=== PATIENT | female | born 1945 | race Caucasian/White ===

== ENCOUNTER 2019-08-31 04:25 | Inpatient (IN) | payer MEDICARE, MEDICAID ==
[~2019-08-31] VITALS: Ht 157.5 cm; Wt 68.8 kg
[~2019-08-31 04:25] MED LIST: ACID1TAB7 PO; ALBU18HF INH; ALPR0.25 PO; ALPR0.254 PO; ALPR0.257 PO; ALPR0.5T7 PO; AMIT10TA PO; AMIT50TA PO; AMLO10TA8 PO; ASCO500C2 PO; ASPI-650 PO; ASPI325T17 PO; BACL-19 PO; BUDE10.2 INH; BUSP7.5T3 PO; CA/D1TAB7 PO; CALC-141 PO; CALC3.7S5 NAS; CARV-39 PO; CARV12.52 PO; CARV3.1212 PO; CETI10TA24 PO; CHOL200074 PO; CLON0.1T12 PO; CLON0.5T11 PO; CLOP75TA PO; CLOP75TA52 PO; CYCL-259 PO; DIAZ5TAB PO; DIVA125C2 PO; DOXY100C15 PO; DOXY100C2 PO; DOXY100T PO; EZET10TA70 PO; FENO48TA17 PO; FLUT16SP24 NAS; FLUT1DIS IH; FLUT9.9S INH; GABA300C10 PO; GUAI200T37 PO; HYDR-3237 PO; HYDR-3343 PO; HYDR-36 PO; HYDR-826 PO; HYDR12.517 PO; HYDR1TAB16 PO; HYDROCHLOROTH12.5 MG PO; IPRA3AMP30 INH; ISOS30TA8 PO; LEVO500T47 PO; LISI40TA PO; LOSA100T14 PO; LOSA25TA25 PO; LOSA50TA2 PO; MAGN400T26 PO; MECL25TA4 PO; MELA1TAB8 PO; METH4TAB2 PO; MULT-717 PO; NYST5000 PO; Nicotine TD; OMEG1CAP23 PO; ONDA4TAB13 PO; OXYC10TA47 PO; OXYM5TAB18 PO; Oxygen INH; PANT40TA3 PO; PARO40TA3 PO; POLY17PO5 PO; POTA90TA2 PO; PRED10TA PO; PRED5TAB PO; PRIM50TA PO; Potassium Chloride PO; QUET100T4 PO; RISP1TAB45 PO; SERT25TA PO; SERT25TA3 PO; SERT50TA28 PO; SIMV40TA3 PO; TIOT18CA INH; TIZA4CAP2 PO; TIZA4TAB2 PO; TRAM-47 PO; TRAM50TA2 PO; TRAZ-137 PO; TRAZ150T62 PO; TRAZ50TA66 PO; TRIA1CAP3 PO; TRIA50CA PO; VITA50DR PO; ZOLP10TA5 PO
--- NOTE | 2019-08-31 05:07 | NUR ---
PT RESTING ON GURNEY, APPLIED MONITORS, NOTED SPO2 89% R/A, APPLIED 4.5L N/C-SPO2-96%. PROVIDED PT WARM BLANKETS, CALL LIGHT WITHIN REACH
[2019-08-31] MEDS ORDERED: ALBUTEROL/IPRATROPIUM 2.5MG/0.5MG, 3 ML ONE (05:15)
[2019-08-31] MEDS ORDERED: ASPIRIN 81 MG TABLET CHEW ONE (05:20)
[2019-08-31] MEDS ORDERED: ALBUTEROL/IPRATROPIUM 2.5MG/0.5MG, 3 ML NPPB SCH (05:30)
[2019-08-31] MEDS ORDERED: SODIUM CHLORIDE FLUSH 10ML SYR IVF ONE (05:30)
[2019-08-31] MEDS ORDERED: ASPIRIN 81 MG TABLET CHEW PO ONE (05:30)
[2019-08-31 05:39] LABS: BASOPHILS # (AUTO) 0.04 x10^3/uL (0-0.1); BASOPHILS % (AUTO) 1 % (0-1); EOSINOPHILS # (AUTO) 0.29 x10^3/uL (0-0.4); EOSINOPHILS % (AUTO) 6 % (1-7); LYMPHOCYTES # (AUTO) 1.85 x10^3/uL (1-3.4); LYMPHOCYTES % (AUTO) 36 % (22-44); MD NO; MEAN CORPUSCULAR HEMOGLOBIN 28.5 pg (27.0-34.8); MEAN CORPUSCULAR VOLUME 86.5 fL (80-100); MEAN PLATELET VOLUME 8.4 fL (7.4-10.4); MONOCYTES % (AUTO) 10 % (2-9); NEUTROPHILS # (AUTO) 2.48 x10^3/uL (1.8-6.8); NEUTROPHILS % (AUTO) 48 % (42-75); PLATELET COUNT 159 x10^3/uL (130-400); RED BLOOD COUNT 4.27 x10^6/uL (3.82-5.3); RED CELL DISTRIBUTION WIDTH 14.5 % (9.6-15.2)
--- NOTE | 2019-08-31 05:41 | NUR ---
IV SITE STARTED, PT MEDICATED PER MAR. PT DENIES NEEDS AT THIS TIME, CALL LIGHT WITHIN REACH
[2019-08-31 05:47] LABS: ALBUMIN 3.1 g/dL (3.4-5.0); ANION GAP 5 mmol/L (5-15); CALCIUM 8.9 mg/dL (8.5-10.1); CHLORIDE 110 mmol/L (98-107)
[2019-08-31 05:50] LABS: TROPONIN I < 0.015 ng/mL (0.000-0.045)
[2019-08-31] MEDS ORDERED: CEFTRIAXONE PMX 1GM/50ML 50 ML ONE (06:25)
[2019-08-31] MEDS ORDERED: CEFTRIAXONE PMX 1GM/50ML 50 ML IVPB ONE (06:30)
[2019-08-31] MEDS ORDERED: AZITHROMYCIN 500 MG in SODIUM CHLORIDE 0.9% 250 ML IVPB ONE (06:30)
--- NOTE | 2019-08-31 06:35 | NUR ---
PT RESTING ON GURNEY, IV ABX STARTED AFTER BLOOD C/O X2 SETS DRAWN, DENIES FURTHER NEEDS, CALL LIGHT WITHIN REACH. AWAITING ADMIT
[2019-08-31] MEDS ORDERED: SODIUM CHLORIDE FLUSH 10ML SYR IVF PRN (07:00)
--- NOTE | 2019-08-31 07:00 | NUR ---
REPORT GIVEN TO MEGHANA LÓPEZ
[2019-08-31 08:00] VITALS: BP 109/67
[2019-08-31] MEDS ORDERED: hydrALAzine 20 MG/ML, 1ML IVPush PRN (10:30)
[2019-08-31] MEDS ORDERED: POLYETHYLENE GLYCOL 17 GM PACKET PO PRN (10:30)
[2019-08-31] MEDS ORDERED: ONDANSETRON 2MG/ML, 2ML IVPush PRN (10:30)
[2019-08-31] MEDS ORDERED: PROMETHAZINE 25 MG/ML, 1ML IM PRN (10:30)
[2019-08-31] MEDS ORDERED: ACETAMINOPHEN 325 MG TABLET PO PRN (10:30)
[2019-08-31] MEDS ORDERED: ONDANSETRON ODT 4 MG PO PRN (10:30)
[2019-08-31] MEDS ORDERED: BISACODYL 10 MG SUPP PR PRN (10:30)
[2019-08-31] MEDS ORDERED: DOCUSATE 100 MG CAPSULE PO PRN (10:30)
[2019-08-31] MEDS ORDERED: SERT100T PO (10:42)
[2019-08-31] MEDS ORDERED: HYDR-3342 PO (10:43)
[2019-08-31] MEDS ORDERED: SERTRALINE 50MG TABLET PO SCH (11:00)
[2019-08-31] MEDS ORDERED: ALBUTEROL/IPRATROPIUM 2.5MG/0.5MG, 3 ML NEB SCH (11:00)
[2019-08-31 11:28] LABS: FREE T4 (FREE THYROXINE) 0.82 ng/dL (0.76-1.46)
[2019-08-31] MEDS: EZETIMIBE 10 MG TABLET PO SCH (11:46)
[2019-08-31] MEDS: CALCIUM/VITAMIN D3 250-125 TABLET PO SCH (11:47)
[2019-08-31] MEDS: ASPIRIN 325 MG TABLET EC PO SCH (11:47)
[2019-08-31] MEDS: SERTRALINE 100MG TABLET PO SCH (11:47)
[2019-08-31] MEDS: CLOPIDOGREL 75 MG TABLET PO SCH (11:47)
[2019-08-31] MEDS: FUROSEMIDE 20 MG/2 ML IV SCH (11:47)
[2019-08-31] MEDS: HEPARIN 5,000 UNITS/ML, 1ML SQ SCH ×2 (11:47→20:38)
[2019-08-31] MEDS: DIAZEPAM 5 MG TABLET PO SCH ×3 (11:49→21:33)
[2019-08-31 12:27] VITALS: BP 122/69
[2019-08-31 13:00] LABS: MICROSCOPIC NOT IND
[2019-08-31 13:03] LABS: CULTURE INDICATED? NO
[2019-08-31] MEDS ORDERED: CEFTRIAXONE PMX 2GM/50ML 50 ML IV SCH (18:00)
[2019-08-31 18:26] VITALS: BP 130/79
[2019-08-31] MEDS: DOXYCYCLINE 100MG TABLET PO SCH (20:38)
[2019-08-31] MEDS: ALBUTEROL/IPRATROPIUM 2.5MG/0.5MG, 3 ML NEB SCH (21:14)
[2019-08-31] MEDS: BUDESONIDE 0.5 MG/2 ML INHA NPPB SCH (21:14)
[2019-08-31] MEDS ORDERED: DIPHENHYDRAMINE 25 MG CAPSULE PO PRN (21:30)
[2019-08-31] MEDS: MELATONIN 5 MG TABLET PO PRN (21:56)
[2019-08-31] MEDS ORDERED: DIAZEPAM 5 MG TABLET PO ONE (22:30)
[2019-08-31] MEDS: OXYcodone IR 5MG TABLET PO PRN (23:06)
[2019-09-01 01:40] VITALS: BP 136/84
[2019-09-01] MEDS: HEPARIN 5,000 UNITS/ML, 1ML SQ SCH ×3 (05:01→20:46)
[2019-09-01 06:29] VITALS: BP 159/87
[2019-09-01] MEDS: CEFTRIAXONE PMX 2GM/50ML 50 ML IV SCH (06:34)
[2019-09-01 06:42] LABS: BASOPHILS # (AUTO) 0.02 x10^3/uL (0-0.1); BASOPHILS % (AUTO) 0 % (0-1); EOSINOPHILS # (AUTO) 0.01 x10^3/uL (0-0.4); EOSINOPHILS % (AUTO) 0 % (1-7); LYMPHOCYTES # (AUTO) 1.81 x10^3/uL (1-3.4); LYMPHOCYTES % (AUTO) 24 % (22-44); MD NO; MEAN CORPUSCULAR HEMOGLOBIN 28.6 pg (27.0-34.8); MEAN CORPUSCULAR HGB CONC 33.1 g/dL (32.4-35.8); MEAN CORPUSCULAR VOLUME 86.3 fL (80-100); MEAN PLATELET VOLUME 8.7 fL (7.4-10.4); MONOCYTES # (AUTO) 0.68 x10^3/uL (0.2-0.8); MONOCYTES % (AUTO) 9 % (2-9); NEUTROPHILS # (AUTO) 4.98 x10^3/uL (1.8-6.8); NEUTROPHILS % (AUTO) 66 % (42-75); PLATELET COUNT 178 x10^3/uL (130-400); RED CELL DISTRIBUTION WIDTH 14.5 % (9.6-15.2)
[2019-09-01 06:55] LABS: CHLORIDE 108 mmol/L (98-107)
[2019-09-01 07:16] LABS: ALANINE AMINOTRANSFERASE 7 U/L (12-78); ALBUMIN 3.4 g/dL (3.4-5.0); ALKALINE PHOSPHATASE 77 U/L (45-117); ANION GAP 6 mmol/L (5-15); BILIRUBIN,TOTAL 0.4 mg/dL (0.2-1.0); CALCIUM 9.7 mg/dL (8.5-10.1); CHOL/HDL RATIO 2.7; CHOLESTEROL, TOTAL 206 mg/dL (140-239); CREATININE 1.15 mg/dL (0.55-1.02); HDL CHOL % 37 % (28-40); HDL CHOLESTEROL (DIRECT) 76 mg/dL (40-60); LDL CHOLESTEROL,CALCULATED 116 mg/dL (54-169); LDL/HDL RATIO 1.5 (0.5-3.0); TOTAL PROTEIN 6.1 g/dL (6.4-8.2); TRIGLYCERIDES 69 mg/dL (50-200); VLDL CHOLESTEROL 14 mg/dL (0-25)
[2019-09-01] MEDS: BUDESONIDE 0.5 MG/2 ML INHA NPPB SCH ×2 (07:20→20:33)
[2019-09-01] MEDS: ALBUTEROL/IPRATROPIUM 2.5MG/0.5MG, 3 ML NEB SCH ×2 (07:20→20:33)
[2019-09-01] MEDS: FUROSEMIDE 20 MG/2 ML IV SCH (07:43)
[2019-09-01] MEDS: DOXYCYCLINE 100MG TABLET PO SCH ×2 (07:44→20:46)
[2019-09-01] MEDS: ASPIRIN 325 MG TABLET EC PO SCH (07:44)
[2019-09-01] MEDS: EZETIMIBE 10 MG TABLET PO SCH (07:44)
[2019-09-01] MEDS: CALCIUM/VITAMIN D3 250-125 TABLET PO SCH (07:44)
[2019-09-01] MEDS: CLOPIDOGREL 75 MG TABLET PO SCH (07:44)
[2019-09-01] MEDS: SERTRALINE 100MG TABLET PO SCH (07:44)
[2019-09-01] MEDS: OMEGA-3/FISH OIL CAPSULE PO SCH (07:44)
[2019-09-01] MEDS ORDERED: DIAZEPAM 5 MG TABLET PO SCH (09:00)
[2019-09-01 12:25] VITALS: BP 138/76
[2019-09-01] MEDS: DIAZEPAM 5 MG TABLET PO SCH ×2 (15:50→20:46)
[2019-09-01 18:20] VITALS: BP 127/62
[2019-09-01] MEDS ORDERED: TEMAZEPAM 15 MG CAPSULE PO PRN (19:00)
[2019-09-01 19:35] VITALS: BP 133/65
[2019-09-01] MEDS: MELATONIN 5 MG TABLET PO PRN (20:47)
[2019-09-01] MEDS ORDERED: TEMAZEPAM 15 MG CAPSULE PO ONE (23:30)
[2019-09-01] MEDS: OXYcodone IR 5MG TABLET PO PRN (23:34)
[2019-09-02 01:22] VITALS: BP 127/62
[2019-09-02] MEDS: HEPARIN 5,000 UNITS/ML, 1ML SQ SCH (04:51)
[2019-09-02] MEDS: CEFTRIAXONE PMX 2GM/50ML 50 ML IV SCH (06:04)
[2019-09-02 06:27] LABS: ANION GAP 7 mmol/L (5-15); CALCIUM 10.3 mg/dL (8.5-10.1); CHLORIDE 106 mmol/L (98-107)
[2019-09-02 06:28] LABS: CREATININE 1.26 mg/dL (0.55-1.02)
[2019-09-02 06:30] LABS: BASOPHILS # (AUTO) 0.05 x10^3/uL (0-0.1); BASOPHILS % (AUTO) 1 % (0-1); EOSINOPHILS # (AUTO) 0.08 x10^3/uL (0-0.4); EOSINOPHILS % (AUTO) 1 % (1-7); LYMPHOCYTES # (AUTO) 1.79 x10^3/uL (1-3.4); LYMPHOCYTES % (AUTO) 22 % (22-44); MD NO; MEAN CORPUSCULAR HEMOGLOBIN 28.6 pg (27.0-34.8); MEAN CORPUSCULAR HGB CONC 33.3 g/dL (32.4-35.8); MEAN CORPUSCULAR VOLUME 85.8 fL (80-100); MEAN PLATELET VOLUME 8.4 fL (7.4-10.4); MONOCYTES # (AUTO) 0.72 x10^3/uL (0.2-0.8); MONOCYTES % (AUTO) 9 % (2-9); NEUTROPHILS # (AUTO) 5.52 x10^3/uL (1.8-6.8); NEUTROPHILS % (AUTO) 68 % (42-75); PLATELET COUNT 229 x10^3/uL (130-400); RED BLOOD COUNT 5.31 x10^6/uL (3.82-5.3); RED CELL DISTRIBUTION WIDTH 14.8 % (9.6-15.2)
[2019-09-02] MEDS: BUDESONIDE 0.5 MG/2 ML INHA NPPB SCH (07:00)
[2019-09-02] MEDS: ALBUTEROL/IPRATROPIUM 2.5MG/0.5MG, 3 ML NEB SCH (07:28)
[2019-09-02] MEDS ORDERED: MAGNESIUM SULFATE PMX 2GM/50ML 50 ML IV ONE (08:00)
[2019-09-02] MEDS: CLOPIDOGREL 75 MG TABLET PO SCH (08:27)
[2019-09-02] MEDS: CALCIUM/VITAMIN D3 250-125 TABLET PO SCH (08:27)
[2019-09-02] MEDS: FUROSEMIDE 20 MG/2 ML IV SCH (08:27)
[2019-09-02] MEDS: EZETIMIBE 10 MG TABLET PO SCH (08:27)
[2019-09-02] MEDS: ASPIRIN 325 MG TABLET EC PO SCH (08:27)
[2019-09-02] MEDS: DIAZEPAM 5 MG TABLET PO SCH (08:27)
[2019-09-02] MEDS: SERTRALINE 100MG TABLET PO SCH (08:27)
[2019-09-02] MEDS: OMEGA-3/FISH OIL CAPSULE PO SCH (08:28)
[2019-09-02] MEDS: DOXYCYCLINE 100MG TABLET PO SCH (08:28)
[2019-09-02 08:45] VITALS: BP 156/89
[2019-09-02] MEDS ORDERED: DOXAZOSIN 2MG TABLET PO SCH (09:00)
[2019-09-02] MEDS ORDERED: DOXY100T PO (09:24)
[2019-09-02] MEDS ORDERED: DOXA2TAB9 PO (09:24)
== END 2019-09-02 12:00 | disposition home or self-care (01) | DRG 177 ==
LOC: ED 04:47 → EDIP 06:33 → MERGE 06:33 → 4EST 07:33 → DCLOUNGE 09-02 11:50
PROVIDERS: ADMIT Internal Medicine; ATTEND Family Medicine
DX: J15.6 Pneumonia due to other Gram-negative bacteria (principal); N17.0 Acute kidney failure with tubular necrosis; J96.21 Acute and chronic respiratory failure with hypoxia; I50.33 Acute on chronic diastolic (congestive) heart failure; J44.0 Chronic obstructive pulmonary disease with (acute) lower respiratory infection; J44.1 Chronic obstructive pulmonary disease with (acute) exacerbation; I11.0 Hypertensive heart disease with heart failure; J15.9 Unspecified bacterial pneumonia; G47.33 Obstructive sleep apnea (adult) (pediatric); I07.1 Rheumatic tricuspid insufficiency; M19.90 Unspecified osteoarthritis, unspecified site; I27.20 Pulmonary hypertension, unspecified; I35.1 Nonrheumatic aortic (valve) insufficiency; Z87.891 Personal history of nicotine dependence; Z99.81 Dependence on supplemental oxygen; Z86.73 Personal history of transient ischemic attack (TIA), and cerebral infarction without residual deficits; Z79.82 Long term (current) use of aspirin; Z79.899 Other long term (current) drug therapy
CPT/HCPCS: 36415; 71045; 80048; 80053; 80061; 80069; 81003; 82040; 83036; 83605; 83735; 83880; 84145; 84439; 84443; 84484; 85025; 87040; 93005; 93306; 94640; 96365; G0378; J0456; J0696; J1644; J7620; J7626; Q0162; J1940; J3475; J7050; J7512

== ENCOUNTER 2019-12-03 07:06 | Observation (INO) | payer MEDICARE, MEDICAID ==
[~2019-12-03] VITALS: Ht 157.5 cm; Wt 65.2 kg
[~2019-12-03 07:06] MED LIST changes: -CETI10TA24 PO; +CETI10TA26 PO; +CLON-364 PO; -CLON0.5T11 PO; +DOXA2TAB9 PO; +FENO48TA10 PO; -FENO48TA17 PO; +HYDR-3246 PO; +HYDR-3342 PO; -HYDR-36 PO; +MECL-101 PO; -MECL25TA4 PO; +SERT100T PO; +SIMV40TA20 PO; -SIMV40TA3 PO; -TRAZ-137 PO; +TRAZ-175 PO
--- NOTE | 2019-12-03 07:25 | NUR ---
sarah. report received from ems. pt woke up 2am and tried to get out of bed. pt was not able to get out of bed d/t generalized weakness/wilkinson/dzy. denies cp/sob. per pt's , pt fell out of bed 1 week ago and hit head. no trauma/loc at that time. pt also concerns her speech which is not normal for pt. pt's aox4. resps even and unlabored. no face drooping/speech difficulty noted at this time. sensation incatct bilaterally. all monitors in place. call light within reach. ekg done at bedside by emt. rails up x2.
--- NOTE | 2019-12-03 07:34 | NUR ---
pt in ct at this time.
--- NOTE | 2019-12-03 07:45 | NUR ---
pt's straight cath'd using sterile technique. pt tolerated well. this rn walked to lab for ua.
[2019-12-03 07:56] LABS: BASOPHILS # (AUTO) 0.03 x10^3/uL (0-0.1); BASOPHILS % (AUTO) 1 % (0-1); EOSINOPHILS # (AUTO) 0.27 x10^3/uL (0-0.4); EOSINOPHILS % (AUTO) 4 % (1-7); LYMPHOCYTES # (AUTO) 2.13 x10^3/uL (1-3.4); LYMPHOCYTES % (AUTO) 30 % (22-44); MD NO; MEAN CORPUSCULAR HEMOGLOBIN 29.5 pg (27.0-34.8); MEAN CORPUSCULAR HGB CONC 33.4 g/dL (32.4-35.8); MEAN CORPUSCULAR VOLUME 88.3 fL (80-100); MEAN PLATELET VOLUME 7.9 fL (7.4-10.4); MONOCYTES % (AUTO) 11 % (2-9); NEUTROPHILS # (AUTO) 3.81 x10^3/uL (1.8-6.8); NEUTROPHILS % (AUTO) 54 % (42-75); PLATELET COUNT 229 x10^3/uL (130-400); RED BLOOD COUNT 4.36 x10^6/uL (3.82-5.3); RED CELL DISTRIBUTION WIDTH 14.6 % (9.6-15.2)
[2019-12-03 08:04] LABS: ALANINE AMINOTRANSFERASE 12 U/L (12-78); ANION GAP 5 mmol/L (5-15); CALCIUM 8.8 mg/dL (8.5-10.1); CHLORIDE 110 mmol/L (98-107); CREATININE 1.23 mg/dL (0.55-1.02)
--- NOTE | 2019-12-03 08:05 | NUR ---
bedpan placed per request.
[2019-12-03 08:08] LABS: ALKALINE PHOSPHATASE 72 U/L (45-117); BILIRUBIN,TOTAL 0.4 mg/dL (0.2-1.0); TOTAL PROTEIN 6.2 g/dL (6.4-8.2); TROPONIN I < 0.015 ng/mL (0.000-0.045)
[2019-12-03 08:35] LABS: MICROSCOPIC NOT IND
[2019-12-03] MEDS ORDERED: DIAZEPAM 5 MG/ML, 2ML IV ONE (09:00)
--- NOTE | 2019-12-03 09:02 | NUR ---
PT RESTING IN [facility]. PT'S AOX4. RESPS EVEN AND UNLABORED. ALL MONITORS IN PLACE. CALL LIGHT WITHIN REACH. RAILS UP X2.
--- NOTE | 2019-12-03 09:05 | NUR ---
James benitez in [facility] - 12/03/19 at 0919 by MEL PT TO MRI AT THIS TIME.
[2019-12-03] MEDS ORDERED: DIAZEPAM 5 MG/ML, 2ML ONE (09:12)
--- NOTE | 2019-12-03 09:19 | NUR ---
PT MEDICATED PER EMAR BEFORE MRI. PT TOLERATED WELL.
--- NOTE | 2019-12-03 09:22 | NUR ---
PT TO MRI AT THIS TIME.
[2019-12-03] MEDS ORDERED: LOSA25TA25 PO (09:26)
--- NOTE | 2019-12-03 10:02 | NUR ---
pt back to room from mri. pt resting in [facility]. pt's aox4. resps even and unlabored.
--- NOTE | 2019-12-03 10:09 | NUR ---
pt's number [phone]
[2019-12-03] MEDS ORDERED: ASPIRIN 81 MG TABLET CHEW ONE (10:16)
--- NOTE | 2019-12-03 10:23 | NUR ---
PT MEDICATED PER EMAR. PT TOLERATED WELL. BED MOYA PLACED PER REQUEST AT THIS TIME.
[2019-12-03] MEDS ORDERED: ASPIRIN 81 MG TABLET CHEW PO ONE (10:30)
--- NOTE | 2019-12-03 10:51 | NUR ---
bedside comode placed in room per shaheen. pt using bedside comode at this time.
--- NOTE | 2019-12-03 11:27 | NUR ---
pt back to bed. pt's aox4. resps even and unlabored. all monitors in place. call light within reach.
--- NOTE | 2019-12-03 11:36 | NUR ---
REPORT GIVEN TO STACIA KOWALSKI. ALL QUESTIONS ANSWERED.
[2019-12-03 12:08] VITALS: BP 155/80
[2019-12-03] MEDS ORDERED: FLUMAZENIL 0.1 MG/1 ML, 5ML ONE (15:20)
[2019-12-03] MEDS ORDERED: NALOXONE 1 MG/ML, 2ML ONE (15:20)
[2019-12-03] MEDS ORDERED: MIDAZOLAM 1 MG/ML, 5ML ONE (15:20)
[2019-12-03] MEDS ORDERED: FENTANYL PF 100 MCG/2ML ONE (15:20)
[2019-12-03] MEDS ORDERED: BISACODYL 10 MG SUPP PR PRN (16:30)
[2019-12-03] MEDS ORDERED: ACETAMINOPHEN 325 MG TABLET PO PRN (16:30)
[2019-12-03] MEDS: HEPARIN 5,000 UNITS/ML, 1ML SQ SCH (16:30)
[2019-12-03] MEDS ORDERED: ZOLPIDEM 5MG TABLET PO PRN (16:30)
[2019-12-03] MEDS ORDERED: hydrALAzine 20 MG/ML, 1ML IVPush PRN (16:30)
[2019-12-03] MEDS ORDERED: ONDANSETRON ODT 4 MG PO PRN (16:30)
[2019-12-03] MEDS ORDERED: POLYETHYLENE GLYCOL 17 GM PACKET PO PRN (16:30)
[2019-12-03 17:35] LABS: FREE T4 (FREE THYROXINE) 0.82 ng/dL (0.76-1.46)
[2019-12-03 18:51] VITALS: BP 136/61
[2019-12-03] MEDS: DIAZEPAM 5 MG TABLET PO SCH (20:09)
[2019-12-04] MEDS: HEPARIN 5,000 UNITS/ML, 1ML SQ SCH ×2 (00:30→08:23)
[2019-12-04 00:40] VITALS: BP 105/70
[2019-12-04 06:16] LABS: BASOPHILS # (AUTO) 0.03 x10^3/uL (0-0.1); BASOPHILS % (AUTO) 1 % (0-1); EOSINOPHILS # (AUTO) 0.24 x10^3/uL (0-0.4); EOSINOPHILS % (AUTO) 4 % (1-7); LYMPHOCYTES # (AUTO) 1.78 x10^3/uL (1-3.4); LYMPHOCYTES % (AUTO) 29 % (22-44); MD NO; MEAN CORPUSCULAR HEMOGLOBIN 29.1 pg (27.0-34.8); MEAN CORPUSCULAR HGB CONC 32.9 g/dL (32.4-35.8); MEAN CORPUSCULAR VOLUME 88.6 fL (80-100); MEAN PLATELET VOLUME 8.5 fL (7.4-10.4); MONOCYTES # (AUTO) 0.64 x10^3/uL (0.2-0.8); MONOCYTES % (AUTO) 11 % (2-9); NEUTROPHILS # (AUTO) 3.37 x10^3/uL (1.8-6.8); NEUTROPHILS % (AUTO) 56 % (42-75); PLATELET COUNT 213 x10^3/uL (130-400); RED CELL DISTRIBUTION WIDTH 14.7 % (9.6-15.2)
[2019-12-04 06:25] LABS: ALANINE AMINOTRANSFERASE 10 U/L (12-78); ALBUMIN 2.8 g/dL (3.4-5.0); ANION GAP 7 mmol/L (5-15); CALCIUM 9.1 mg/dL (8.5-10.1); CHLORIDE 107 mmol/L (98-107); CHOLESTEROL, TOTAL 208 mg/dL (140-239); CREATININE 1.07 mg/dL (0.55-1.02)
[2019-12-04 06:28] LABS: ALKALINE PHOSPHATASE 71 U/L (45-117); BILIRUBIN,TOTAL 0.3 mg/dL (0.2-1.0); CHOL/HDL RATIO 2.6; HDL CHOL % 39 % (28-40); HDL CHOLESTEROL (DIRECT) 81 mg/dL (40-60); LDL CHOLESTEROL,CALCULATED 110 mg/dL (54-169); LDL/HDL RATIO 1.4 (0.5-3.0); TOTAL PROTEIN 5.9 g/dL (6.4-8.2); TRIGLYCERIDES 87 mg/dL (50-200); VLDL CHOLESTEROL 17 mg/dL (0-25)
[2019-12-04 07:33] VITALS: BP 120/72
[2019-12-04] MEDS: DIAZEPAM 5 MG TABLET PO SCH (08:24)
[2019-12-04] MEDS ORDERED: CLOPIDOGREL 75 MG TABLET PO SCH (09:00)
[2019-12-04] MEDS ORDERED: SERTRALINE 100MG TABLET PO SCH (09:00)
[2019-12-04] MEDS ORDERED: ASPIRIN 325 MG TABLET EC PO SCH (09:00)
[2019-12-04] MEDS ORDERED: EZETIMIBE 10 MG TABLET PO SCH (09:00)
[2019-12-04 12:52] VITALS: BP 108/70
== END 2019-12-04 15:32 | disposition home health service (06) ==
LOC: ED 07:58 → INTOOBSV 10:52 → EDIP 10:52 → 4WST 12:26
PROVIDERS: ADMIT Internal Medicine; ATTEND Family Medicine
DX: G93.41 Metabolic encephalopathy (principal); R47.01 Aphasia; I69.354 Hemiplegia and hemiparesis following cerebral infarction affecting left non-dominant side; J96.10 Chronic respiratory failure, unspecified whether with hypoxia or hypercapnia; I13.0 Hypertensive heart and chronic kidney disease with heart failure and stage 1 through stage 4 chronic kidney disease, or unspecified chronic kidney disease; R47.1 Dysarthria and anarthria; I69.392 Facial weakness following cerebral infarction; I25.2 Old myocardial infarction; G47.33 Obstructive sleep apnea (adult) (pediatric); J44.9 Chronic obstructive pulmonary disease, unspecified; F41.9 Anxiety disorder, unspecified; F32.9 Major depressive disorder, single episode, unspecified; I35.1 Nonrheumatic aortic (valve) insufficiency; I50.9 Heart failure, unspecified; R26.2 Difficulty in walking, not elsewhere classified; N18.3 Chronic kidney disease, stage 3 (moderate); Z79.891 Long term (current) use of opiate analgesic; Z79.82 Long term (current) use of aspirin; Z79.02 Long term (current) use of antithrombotics/antiplatelets; Z79.51 Long term (current) use of inhaled steroids
CPT/HCPCS: 36415; 70450; 70551; 71045; 80053; 80061; 81003; 83036; 84439; 84443; 84484; 85025; 87086; 93005; 96374; 97162; 97165; 99156; 99157; 99285; G0378; J2250; J3010; J3360; J2310

== ENCOUNTER 2020-01-01 10:25 | Observation (INO) | payer MEDICARE, MEDICAID ==
[~2020-01-01] VITALS: Ht 160 cm; Wt 68.0 kg
[~2020-01-01 10:25] MED LIST changes: -BUSP7.5T3 PO; +BUSP7.5T5 PO
[2020-01-01] MEDS ORDERED: SPIR25TA5 PO (10:38)
--- NOTE | 2020-01-01 10:48 | NUR ---
THIS IS A 74 YO F BIB EMS FROM HOME W/ C/O SLURRED SPEECH AND WEAKNESS. PER PTS HARJINDER PT WOKE UP AT 0400 THIS MORNING TO USE BR BUT WAS WALKING INTO [place], SLURRING SPEECH AND THEN BECAME NONAMBULATORY. LAID HER BACK TO BED. PT CAME TODAY AND NOTIFICED SLURRED SPEECH AND CALLED EMS. 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 PT A&OX4 HOWEVER DOES DEMONSTRATE SOME SLURRING OF SPEECH. PER LAST KNOWN NORMAL WAS 1900 LAST NIGHT PRIOR TO GOING TO BED. PT IS RESTING ON GURNEY RESP EVEN AND UNLABORED, NADN. CALL LIGHT IN REACH, CONNECTED TO ALL MONITORING. AT BEDSIDE FOR ED EVAL.
--- NOTE | 2020-01-01 11:00 | NUR ---
MED REC DONE.
--- NOTE | 2020-01-01 11:09 | NUR ---
STRAIGHT CATH URINE OBTAINED AND WALKED TO LAB. PT TOLERATED WELL. RIMA, YANI.
--- NOTE | 2020-01-01 11:10 | NUR ---
RAD IN ROOM.
--- NOTE | 2020-01-01 11:12 | NUR ---
PT TO CT.
[2020-01-01 11:16] LABS: MICROSCOPIC NOT IND
--- NOTE | 2020-01-01 11:35 | NUR ---
LAB IN ROOM.
[2020-01-01 11:53] LABS: BASOPHILS # (AUTO) 0.03 x10^3/uL (0-0.1); BASOPHILS % (AUTO) 1 % (0-1); EOSINOPHILS # (AUTO) 0.18 x10^3/uL (0-0.4); EOSINOPHILS % (AUTO) 3 % (1-7); LYMPHOCYTES % (AUTO) 26 % (22-44); MD NO; MEAN CORPUSCULAR HEMOGLOBIN 29.5 pg (27.0-34.8); MEAN CORPUSCULAR HGB CONC 32.9 g/dL (32.4-35.8); MEAN CORPUSCULAR VOLUME 89.6 fL (80-100); MEAN PLATELET VOLUME 7.9 fL (7.4-10.4); MONOCYTES # (AUTO) 0.58 x10^3/uL (0.2-0.8); MONOCYTES % (AUTO) 11 % (2-9); NEUTROPHILS # (AUTO) 3.31 x10^3/uL (1.8-6.8); NEUTROPHILS % (AUTO) 60 % (42-75); PLATELET COUNT 167 x10^3/uL (130-400); RED BLOOD COUNT 4.36 x10^6/uL (3.82-5.3); RED CELL DISTRIBUTION WIDTH 14.1 % (9.6-15.2)
[2020-01-01 12:02] LABS: INTERNATIONAL NORMALIZED RATIO 0.97 (0.93-1.1); PROTHROMBIN TIME 10.3 Seconds (9.6-11.5)
[2020-01-01 12:04] LABS: ALBUMIN 3.2 g/dL (3.4-5.0); ANION GAP 4 mmol/L (5-15); CHLORIDE 108 mmol/L (98-107)
[2020-01-01 12:12] LABS: ALANINE AMINOTRANSFERASE 14 U/L (12-78); ALKALINE PHOSPHATASE 75 U/L (45-117); BILIRUBIN,TOTAL 0.6 mg/dL (0.2-1.0); CREATININE 1.24 mg/dL (0.55-1.02); TOTAL PROTEIN 5.9 g/dL (6.4-8.2); TROPONIN I < 0.015 ng/mL (0.000-0.045)
--- NOTE | 2020-01-01 13:00 | NUR ---
PT RESTING ON [employer] W/ CALL LIGHT IN REACH. CONNECTED TO ALL MONITORING. SIDE RAILS UPX2. RESP EVEN AND UNLABORED. NADN. UPDATED ON POC FOR ADMIT.
--- NOTE | 2020-01-01 13:12 | NUR ---
PT PLACED ON BEDPAN.
--- NOTE | 2020-01-01 13:38 | NUR ---
PT RESTING ON [employer] W/ CALL LIGHT IN REACH. RESP EVEN AND UNLABORED, YANI.
--- NOTE | 2020-01-01 13:38 | NUR ---
HARJINDER SPOUSE [phone]
--- NOTE | 2020-01-01 13:44 | NUR ---
REPORT GIVEN TO RIZWAN KOWALSKI. PT IS READY FOR TRANSPORT AT THIS TIME.
--- NOTE | 2020-01-01 13:45 | NUR ---
TELEPHONE CALL TO HARJINDER WHEELER UPDATING HIM ON POC FOR ADMIT.
[2020-01-01] MEDS ORDERED: ACETAMINOPHEN 325 MG TABLET PO PRN (14:30)
[2020-01-01] MEDS ORDERED: TRAZODONE 50MG TABLET PO PRN (14:30)
[2020-01-01] MEDS ORDERED: ONDANSETRON 2MG/ML, 2ML IVPush PRN (14:30)
[2020-01-01] MEDS: HEPARIN 5,000 UNITS/ML, 1ML SQ SCH (16:22)
[2020-01-01 16:24] VITALS: BP 139/69
[2020-01-01 18:45] VITALS: BP 140/88
[2020-01-01 19:59] VITALS: BP 122/75
[2020-01-02 00:03] VITALS: BP 132/82
[2020-01-02] MEDS: HEPARIN 5,000 UNITS/ML, 1ML SQ SCH ×2 (03:08→15:07)
[2020-01-02 05:37] LABS: ANION GAP 8 mmol/L (5-15); CALCIUM 8.9 mg/dL (8.5-10.1); CHLORIDE 106 mmol/L (98-107)
[2020-01-02 05:39] LABS: BASOPHILS % (AUTO) 0 % (0-1); EOSINOPHILS # (AUTO) 0.18 x10^3/uL (0-0.4); EOSINOPHILS % (AUTO) 3 % (1-7); LYMPHOCYTES # (AUTO) 1.73 x10^3/uL (1-3.4); LYMPHOCYTES % (AUTO) 33 % (22-44); MD NO; MEAN CORPUSCULAR HEMOGLOBIN 29.2 pg (27.0-34.8); MEAN CORPUSCULAR HGB CONC 32.9 g/dL (32.4-35.8); MEAN CORPUSCULAR VOLUME 88.7 fL (80-100); MEAN PLATELET VOLUME 8.3 fL (7.4-10.4); MONOCYTES # (AUTO) 0.53 x10^3/uL (0.2-0.8); MONOCYTES % (AUTO) 10 % (2-9); NEUTROPHILS # (AUTO) 2.83 x10^3/uL (1.8-6.8); NEUTROPHILS % (AUTO) 54 % (42-75); PLATELET COUNT 136 x10^3/uL (130-400); RED BLOOD COUNT 4.27 x10^6/uL (3.82-5.3); RED CELL DISTRIBUTION WIDTH 14.2 % (9.6-15.2)
[2020-01-02 05:49] LABS: CREATININE 1.19 mg/dL (0.55-1.02)
[2020-01-02 07:26] LABS: CHOL/HDL RATIO 2.9
[2020-01-02 07:27] LABS: LDL/HDL RATIO 1.6 (0.5-3.0)
[2020-01-02 07:40] VITALS: BP 152/87
[2020-01-02] MEDS: ASPIRIN 325 MG TABLET EC PO SCH (08:22)
[2020-01-02] MEDS: EZETIMIBE 10 MG TABLET PO SCH (08:22)
[2020-01-02] MEDS: SERTRALINE 100MG TABLET PO SCH (08:23)
[2020-01-02] MEDS: CLOPIDOGREL 75 MG TABLET PO SCH (08:23)
[2020-01-02] MEDS: DIAZEPAM 5 MG TABLET PO SCH (08:23)
[2020-01-02] MEDS ORDERED: LORazepam 2 MG/ML, 1ML IVPush ONE (08:30)
[2020-01-02] MEDS ORDERED: BISACODYL 10 MG SUPP PR PRN (08:30)
[2020-01-02 13:12] VITALS: BP 146/84
[2020-01-02 19:30] VITALS: BP 116/74
[2020-01-02 20:37] VITALS: BP 136/74
[2020-01-03 00:05] VITALS: BP 120/82
[2020-01-03 00:20] VITALS: BP 117/66
[2020-01-03] MEDS: HEPARIN 5,000 UNITS/ML, 1ML SQ SCH (05:13)
[2020-01-03 05:16] LABS: ANION GAP 8 mmol/L (5-15); CALCIUM 8.9 mg/dL (8.5-10.1); CHLORIDE 107 mmol/L (98-107); CREATININE 0.98 mg/dL (0.55-1.02)
[2020-01-03 06:31] VITALS: BP 129/77
[2020-01-03] MEDS: EZETIMIBE 10 MG TABLET PO SCH (09:16)
[2020-01-03] MEDS: SERTRALINE 100MG TABLET PO SCH (09:16)
[2020-01-03] MEDS: DIAZEPAM 5 MG TABLET PO SCH (09:17)
[2020-01-03] MEDS: CLOPIDOGREL 75 MG TABLET PO SCH (09:17)
[2020-01-03] MEDS: ASPIRIN 325 MG TABLET EC PO SCH (09:17)
== END 2020-01-03 11:22 | disposition home or self-care (01) ==
LOC: ED 13:01 → SUATTDRO 13:38 → EDIP 13:57 → INTOOBSV 13:57 → 4EST 14:24
PROVIDERS: ADMIT Hospitalist; ATTEND Internal Medicine Infectious Disease
DX: G45.9 Transient cerebral ischemic attack, unspecified (principal); I11.0 Hypertensive heart disease with heart failure; I50.32 Chronic diastolic (congestive) heart failure; J96.10 Chronic respiratory failure, unspecified whether with hypoxia or hypercapnia; J44.9 Chronic obstructive pulmonary disease, unspecified; G47.33 Obstructive sleep apnea (adult) (pediatric); I35.1 Nonrheumatic aortic (valve) insufficiency; Z86.73 Personal history of transient ischemic attack (TIA), and cerebral infarction without residual deficits; Z87.891 Personal history of nicotine dependence; Z79.899 Other long term (current) drug therapy; Z79.82 Long term (current) use of aspirin
CPT/HCPCS: 36415; 70450; 70551; 71045; 80048; 80053; 80061; 81003; 84443; 84484; 85025; 85610; 85730; 87040; 93005; 93306; 93880; 96372; 96374; 97162; 99285; G0378; J1644; J2060

== ENCOUNTER 2020-02-09 18:54 | Emergency (ER) | payer MEDICARE, MEDICAID ==
[~2020-02-09] VITALS: Ht 157.5 cm; Wt 68.1 kg
[~2020-02-09 18:54] MED LIST changes: +SPIR25TA5 PO
--- NOTE | 2020-02-09 20:05 | NUR ---
Pt to xray.
[2020-02-09] MEDS ORDERED: CEFTRIAXONE 1,000 MG ONE (20:21)
[2020-02-09] MEDS ORDERED: HYDROcodone/APAP 5/325 TABLET PO ONE (20:30)
[2020-02-09] MEDS ORDERED: HYDROcodone/APAP 5/325 TABLET ONE (20:36)
[2020-02-09 20:51] LABS: BASOPHILS # (AUTO) 0.01 x10^3/uL (0-0.1); BASOPHILS % (AUTO) 0 % (0-1); EOSINOPHILS # (AUTO) 0.21 x10^3/uL (0-0.4); EOSINOPHILS % (AUTO) 3 % (1-7); LYMPHOCYTES # (AUTO) 2.13 x10^3/uL (1-3.4); LYMPHOCYTES % (AUTO) 29 % (22-44); MD NO; MEAN CORPUSCULAR HEMOGLOBIN 28.9 pg (27.0-34.8); MEAN CORPUSCULAR HGB CONC 32.2 g/dL (32.4-35.8); MEAN CORPUSCULAR VOLUME 89.8 fL (80-100); MEAN PLATELET VOLUME 7.9 fL (7.4-10.4); MONOCYTES # (AUTO) 0.76 x10^3/uL (0.2-0.8); MONOCYTES % (AUTO) 10 % (2-9); NEUTROPHILS # (AUTO) 4.19 x10^3/uL (1.8-6.8); NEUTROPHILS % (AUTO) 57 % (42-75); PLATELET COUNT 231 x10^3/uL (130-400); RED BLOOD COUNT 4.42 x10^6/uL (3.82-5.3); RED CELL DISTRIBUTION WIDTH 14.3 % (9.6-15.2)
[2020-02-09 20:56] LABS: ALANINE AMINOTRANSFERASE 15 U/L (12-78); ALBUMIN 3.8 g/dL (3.4-5.0); ANION GAP 2 mmol/L (5-15); CALCIUM 9.4 mg/dL (8.5-10.1); CHLORIDE 107 mmol/L (98-107); CREATININE 1.36 mg/dL (0.55-1.02)
[2020-02-09 21:01] LABS: ALKALINE PHOSPHATASE 83 U/L (45-117); BILIRUBIN,TOTAL 0.4 mg/dL (0.2-1.0); TROPONIN I < 0.015 ng/mL (0.000-0.045)
[2020-02-09 21:15] VITALS: BP 169/89
--- NOTE | 2020-02-09 21:44 | NUR ---
Called Caleb Mayer per pt request and advised she was being discharged. Mr. Mayer said he would be there in about 20 minutes.
== END 2020-02-09 22:47 | disposition home or self-care (01) ==
LOC: ED 19:17
DX: S22.41XA Multiple fractures of ribs, right side, initial encounter for closed fracture (principal); I49.3 Ventricular premature depolarization; R07.89 Other chest pain; J44.9 Chronic obstructive pulmonary disease, unspecified; Z86.73 Personal history of transient ischemic attack (TIA), and cerebral infarction without residual deficits; Z87.891 Personal history of nicotine dependence; W18.39XA Other fall on same level, initial encounter; Y93.89 Activity, other specified; Y92.098 Other place in other non-institutional residence as the place of occurrence of the external cause; Y99.8 Other external cause status
CPT/HCPCS: 36415; 80053; 84484; 85025; 93005; 99285

== ENCOUNTER 2020-02-25 17:19 | Emergency (ER) | payer MEDICARE, MEDICAID ==
[~2020-02-25] VITALS: Ht 157.5 cm; Wt 68.2 kg
[2020-02-25 18:04] LABS: BASOPHILS # (AUTO) 0.04 x10^3/uL (0-0.1); BASOPHILS % (AUTO) 1 % (0-1); EOSINOPHILS # (AUTO) 0.09 x10^3/uL (0-0.4); EOSINOPHILS % (AUTO) 1 % (1-7); LYMPHOCYTES # (AUTO) 1.85 x10^3/uL (1-3.4); LYMPHOCYTES % (AUTO) 27 % (22-44); MD NO; MEAN CORPUSCULAR HEMOGLOBIN 29.4 pg (27.0-34.8); MEAN CORPUSCULAR HGB CONC 33.3 g/dL (32.4-35.8); MEAN CORPUSCULAR VOLUME 88.2 fL (80-100); MEAN PLATELET VOLUME 8.6 fL (7.4-10.4); MONOCYTES # (AUTO) 0.73 x10^3/uL (0.2-0.8); MONOCYTES % (AUTO) 11 % (2-9); NEUTROPHILS # (AUTO) 4.14 x10^3/uL (1.8-6.8); NEUTROPHILS % (AUTO) 60 % (42-75); PLATELET COUNT 213 x10^3/uL (130-400); RED BLOOD COUNT 4.42 x10^6/uL (3.82-5.3); RED CELL DISTRIBUTION WIDTH 14.4 % (9.6-15.2)
[2020-02-25 18:09] LABS: ALANINE AMINOTRANSFERASE 12 U/L (12-78); ALBUMIN 3.4 g/dL (3.4-5.0); ANION GAP 7 mmol/L (5-15); CALCIUM 9.4 mg/dL (8.5-10.1); CHLORIDE 111 mmol/L (98-107); CREATININE 1.26 mg/dL (0.55-1.02)
[2020-02-25 18:11] LABS: ALKALINE PHOSPHATASE 100 U/L (45-117); BILIRUBIN,TOTAL 0.6 mg/dL (0.2-1.0); TOTAL PROTEIN 6.2 g/dL (6.4-8.2)
--- NOTE | 2020-02-25 18:18 | NUR ---
STRAIGHT CATH PERFORMED WITHOUT DIFFICULTY. URINE SAMPLE WALKED TO LAB. VITAL SIGNS WDL, NO C/O OF PAIN. NO FURTHER NEEDS AT THIS TIME.
[2020-02-25 18:32] LABS: MICROSCOPIC NOT IND
--- NOTE | 2020-02-25 19:12 | NUR ---
report received from hillary ellis
--- NOTE | 2020-02-25 19:14 | NUR ---
pt walked to bathroom and back to bed with one assist, pt back in bed on monitor and provided with warm blankets. son at bedside
[2020-02-25 20:42] VITALS: BP 126/70
== END 2020-02-25 20:47 | disposition home or self-care (01) ==
LOC: ED 20:27
DX: R41.82 Altered mental status, unspecified (principal); R07.9 Chest pain, unspecified; R94.31 Abnormal electrocardiogram [ECG] [EKG]; Z86.73 Personal history of transient ischemic attack (TIA), and cerebral infarction without residual deficits
CPT/HCPCS: 36415; 71045; 80053; 81003; 85025; 93005; 99285

== ENCOUNTER → 2020-04-27 | Outpatient (CLI) | payer MEDICARE, MEDICAID ==
[~2020-04-27] MED LIST changes: -CETI10TA26 PO; +CETI10TA76 PO
== END | disposition home or self-care (01) ==
LOC: CFH 10:00
PROVIDERS: ATTEND Registered Nurse
DX: Z12.2 Encounter for screening for malignant neoplasm of respiratory organs (principal); S22.000A Wedge compression fracture of unspecified thoracic vertebra, initial encounter for closed fracture; I65.23 Occlusion and stenosis of bilateral carotid arteries; J43.2 Centrilobular emphysema; R91.8 Other nonspecific abnormal finding of lung field; X58.XXXA Exposure to other specified factors, initial encounter; Y93.89 Activity, other specified; Y92.89 Other specified places as the place of occurrence of the external cause; Y99.8 Other external cause status
CPT/HCPCS: 93880; G0297

== ENCOUNTER 2020-08-13 07:44 | Emergency (ER) | payer MEDICARE, MEDICAID ==
[~2020-08-13] VITALS: Ht 157.5 cm; Wt 63.3 kg
[~2020-08-13 07:44] MED LIST changes: +AMLO-211 PO; -AMLO10TA8 PO
--- NOTE | 2020-08-13 07:59 | NUR ---
PATIENT ARRIVES WITH THINKING SHE HAS A "PUS FILLED INJURY" TO INSIDE OF LOWER LIP. SHOWED ME, I DO NOT SEE ANYTHING.
[2020-08-13 08:20] VITALS: BP 128/78
== END 2020-08-13 08:26 | disposition home or self-care (01) ==
LOC: ED 08:20
DX: K06.8 Other specified disorders of gingiva and edentulous alveolar ridge (principal); J44.9 Chronic obstructive pulmonary disease, unspecified; Z86.73 Personal history of transient ischemic attack (TIA), and cerebral infarction without residual deficits
CPT/HCPCS: 99283

== ENCOUNTER 2020-11-27 05:53 | Emergency (ER) | payer MEDICARE, MEDICAID ==
[~2020-11-27] VITALS: Ht 157.5 cm; Wt 63.3 kg
[~2020-11-27 05:53] MED LIST changes: +ASPI-1026 PO; -ASPI-650 PO; -CYCL-259 PO; +CYCL10TA2 PO; -HYDR-3246 PO; +HYDR-3248 PO; -LISI40TA PO; +LISI40TA9 PO; +SERT-331 PO; -SERT25TA3 PO
[2020-11-27 05:56] VITALS: BP 143/54
== END 2020-11-27 06:30 | disposition home or self-care (01) ==
LOC: ED 06:24
DX: B00.1 Herpesviral vesicular dermatitis (principal); I10 Essential (primary) hypertension
CPT/HCPCS: 99283